=== PATIENT | female | born 1925 | race Caucasian/White ===

== ENCOUNTER 2016-11-22 12:41 | Inpatient (IN) | payer MEDICARE, OTHER ==
[~2016-11-22] VITALS: Ht 152.4 cm; Wt 44.9 kg
--- NOTE | 2016-11-22 12:50 | NUR ---
[facility] from [facility] due to hypotension and weakness. PT arrived awake, however appears confused and in mild distress. Pt denies pain or discomfort. Skin is warm to touch and non dioaphoretic. Afebrile. VSs. Gowned and placed pt on tele monitor
[2016-11-22] MEDS ORDERED: IV NS 0.9% 1,000 ML BAG IV ONE ×2 (13:00→15:00)
--- NOTE | 2016-11-22 13:00 | NUR ---
IV on left ac20 noted intact
[2016-11-22] MEDS ORDERED: IV NS 0.9% 1,000 ML ONE ×2 (13:05→15:02)
[2016-11-22 13:16] LABS: BASOPHILS # (AUTO) 0.2 /CMM (0.0-0.2); BASOPHILS % (AUTO) 0.8 % (0.0-2.0); HEMATOCRIT 37 % (33-45); HEMOGLOBIN 12.2 g/dL (11.5-14.8); LYMPHOCYTES # (AUTO) 0.6 /CMM (0.8-4.8); LYMPHOCYTES % (AUTO) 3.2 % (20.0-44.0); MEAN CORPUSCULAR HEMOGLOBIN 31 PG (26.0-33.0); MEAN CORPUSCULAR HGB CONC 33 g/dl (31.0-36.0); MEAN CORPUSCULAR VOLUME 94 fL (82-100); MONOCYTES # (AUTO) 0.6 /CMM (0.1-1.30); MONOCYTES % (AUTO) 2.9 % (2.0-12.0); NEUTROPHILS % (AUTO) 93.1 % (43.0-81.0); PLATELET COUNT (AUTO) 171 /CMM (150-450); RDW COEFFICIENT OF VARIATION 13.1 (11.5-15.0); RED BLOOD CELL COUNT(AUTO) 3.92 MIL/uL (4.0-5.2); WHITE BLOOD COUNT (AUTO) 19.4 K/uL (4.3-11.0)
[2016-11-22 13:26] LABS: CALCIUM, SERUM 8.9 mg/dL (8.5-10.1); CARBON DIOXIDE 23 mmol/L (21-32); CHLORIDE 107 mmol/L (98-107); CREATININE 1.5 mg/dL (0.6-1.3); GLUCOSE 172 mg/dL (74-106); POTASSIUM 3.5 mmol/L (3.5-5.1); SODIUM SERUM 138 mmol/L (136-145); UREA NITROGEN, BLOOD 20 mg/dL (7-18)
[2016-11-22] MEDS ORDERED: CRAN250C PO (13:26)
[2016-11-22] MEDS ORDERED: CHOL100044 PO (13:26)
[2016-11-22] MEDS ORDERED: TOPI-37 PO (13:26)
[2016-11-22] MEDS ORDERED: LEVO175T7 PO (13:26)
[2016-11-22] MEDS ORDERED: POTA20TA83 PO (13:26)
[2016-11-22] MEDS ORDERED: CITA20TA11 PO (13:26)
[2016-11-22] MEDS ORDERED: MIDO5TAB PO (13:26)
[2016-11-22] MEDS ORDERED: PRIM50TA PO (13:26)
[2016-11-22] MEDS ORDERED: TRAZ-147 PO (13:26)
[2016-11-22] MEDS ORDERED: ZINC220T PO (13:26)
[2016-11-22] MEDS ORDERED: ASCO500T9 PO (13:26)
[2016-11-22 13:31] LABS: INR 1.05 (0.87-1.13)
[2016-11-22 13:32] LABS: ALANINE AMINOTRANSFERASE 14 U/L (12-78); ALBUMIN 2.5 g/dL (3.4-5.0); ALKALINE PHOSPHATASE 63 U/L (46-116); ASPARTATE AMINOTRANSFERASE 28 U/L (15-37); BILIRUBIN,DIRECT 0.1 mg/dL (0.0-0.2); BILIRUBIN,TOTAL 0.2 mg/dL (0.2-1.0); TOTAL PROTEIN, SERUM 5.8 g/dL (6.4-8.2)
[2016-11-22 13:34] LABS: TROPONIN I 0.031 ng/mL (0.00-0.056)
[2016-11-22 14:10] LABS: APPEARANCE,URINE Cloudy (CLEAR); BILIRUBIN,URINE Negative (NEGATIVE); BLOOD, URINE Large Ery/uL (NEGATIVE); KETONES,URINE Negative (NEGATIVE); LEUKOCYTE ESTERASE ,URINE Small (NEGATIVE); NITRITE, URINE Negative (NEGATIVE); PH,URINE 7.5 (5.0-8.0); PROTEIN,URINE 100 mg/dl (NEGATIVE); UGLUCOSE Negative (NEGATIVE)
[2016-11-22 14:18] LABS: COLOR,URINE YELLOW (YELLOW)
[2016-11-22 14:23] LABS: LACTIC ACID 4.2 mmol/L (0.4-2.0)
--- NOTE | 2016-11-22 14:25 | NUR ---
PAGED DR BROOKE
[2016-11-22 14:30] LABS: ADD URINE CULTURE YES; BACTERIA,URINE Many /HPF (None Seen); RBC,URINE 81-100 /HPF (0-2); SQUAMOUS EPITHELIAL CELL,UR Moderate /HPF (None Seen)
[2016-11-22] MEDS ORDERED: CEFTRIAXONE 1GM BAG (ER ONLY) 50 ML IV ONE ×2 (15:00→15:02)
--- NOTE | 2016-11-22 15:00 | NUR ---
urine sample sent to lab
--- NOTE | 2016-11-22 15:11 | NUR ---
REPAGED DR GREENWOOD.
--- NOTE | 2016-11-22 15:29 | NUR ---
REPAGED RN TRANSPLANT ASSEMBLER MOVEMENT
--- NOTE | 2016-11-22 16:00 | NUR ---
Patient awake, dtr at bs
--- NOTE | 2016-11-22 16:30 | NUR ---
Report given to nurse CATES for tj
--- NOTE | 2016-11-22 17:09 | NUR ---
Patient tras=nsported to tele 1. vss
[2016-11-22 18:09] VITALS: BP 104/61
[2016-11-22 20:00] VITALS: BP 89/50
[2016-11-22] MEDS ORDERED: IV SET PRIMARY PUMP SET 1 EA INFUS.SET MC ONE (20:04)
[2016-11-22] MEDS: IV D5/ 0.9% NACL 1,000 ML IV PRN (20:13)
[2016-11-23] VITALS: BP 119/71
[2016-11-23 04:00] VITALS: BP 99/60
[2016-11-23 07:01] LABS: BASOPHILS # (AUTO) 0.1 /CMM (0.0-0.2); BASOPHILS % (AUTO) 0.3 % (0.0-2.0); EOSINOPHILS # (AUTO) 0.1 /CMM (0.0-0.7); EOSINOPHILS % (AUTO) 0.3 % (0.0-6.0); HEMATOCRIT 34 % (33-45); HEMOGLOBIN 11.2 g/dL (11.5-14.8); LYMPHOCYTES # (AUTO) 1.7 /CMM (0.8-4.8); LYMPHOCYTES % (AUTO) 10.1 % (20.0-44.0); MEAN CORPUSCULAR HEMOGLOBIN 31 PG (26.0-33.0); MEAN CORPUSCULAR HGB CONC 33 g/dl (31.0-36.0); MEAN CORPUSCULAR VOLUME 94 fL (82-100); MONOCYTES # (AUTO) 1.4 /CMM (0.1-1.30); NEUTROPHILS # (AUTO) 14.1 /CMM (1.8-8.9); NEUTROPHILS % (AUTO) 81.3 % (43.0-81.0); PLATELET COUNT (AUTO) 168 /CMM (150-450); RDW COEFFICIENT OF VARIATION 14.7 (11.5-15.0); RED BLOOD CELL COUNT(AUTO) 3.62 MIL/uL (4.0-5.2); WHITE BLOOD COUNT (AUTO) 17.3 K/uL (4.3-11.0)
--- NOTE | 2016-11-23 07:30 | NUR ---
BUSINESS PROCESS COORDINATOR NOTES PT IN BED, ASLEEP, EASY TO AROUSE, ALERT TO NAME, PT KNOWS WHERE SHE IS, NO COMPLAINT OF PAIN, RESPIRATIONS NORMAL AND NOT LABORED, IV FLUIDS INFUSING WELL, CALL LIGHT WITHIN REACH.
[2016-11-23 07:44] LABS: CALCIUM, SERUM 8.4 mg/dL (8.5-10.1); CREATININE 0.7 mg/dL (0.6-1.3); POTASSIUM 3.2 mmol/L (3.5-5.1)
[2016-11-23 07:55] LABS: LACTIC ACID 1.1 mmol/L (0.4-2.0)
[2016-11-23 08:00] VITALS: BP 107/59
[2016-11-23] MEDS ORDERED: Z GUARD REMEDY 2 OZ OINT TP SCH (09:00)
--- NOTE | 2016-11-23 09:19 | NUR ---
WOUND CARE CONSULT: PATIENT SEEN AND SKIN ASSESSMENT DONE. PATIENT ALERT, INCONTINENT, MICHEAL 13, LAYS ON POSITION, C/O SEVERE PAIN WHEN TURNED/REPOSITIONED, VICTOR HUGO ISOFLEX CHAR BED IN USE. SEE TODAY'S SKIN ASSESSMENT IN PCS ALONG WITH RECOMMENDATIONS. RECOMMEND MOISTURE PROTECTION WITH Z GUARD ORDERED. PRESSURE PREVENTION MEASURES, TURN AND REPOSITION EVERY 2 HRS PATIENT CONDITION PERMITS, OFFLOAD BOTH HEELS. ALL DISCUSSED WITH NURSING STAFF. MD IN AGREEMENT WITH PLAN OF CARE. Addendum: 11/23/16 at 0929 by NHAN RAMOS WNDNU Amended: Links added.
[2016-11-23] MEDS ORDERED: Z GUARD REMEDY 2 OZ OINT TP PRN (09:30)
[2016-11-23] MEDS: IV D5/ 0.9% NACL 1,000 ML IV PRN (10:06)
[2016-11-23 10:21] LABS: *RAPID PLASMA REAGIN QUAL Non Reactive (Non Reactive)
[2016-11-23] MEDS ORDERED: ACETAMINOPHEN 650 MG/20.3 ML UDC NG PRN (11:00)
[2016-11-23] MEDS ORDERED: MAGNESIUM HYDROXIDE 30 ML UDC PO PRN (11:00)
[2016-11-23] MEDS ORDERED: BISACODYL SUPP (10 MG) 10 MG/SUPP.RECT SUPP.RECT RC PRN (11:00)
--- NOTE | 2016-11-23 11:01 | NUR ---
VENDOR ANALYST NOTES PT RESTING, VERBALLY RESPONSIVE, NOT IN PAIN OR DISTRESS, SEEN BY DR. BARRAGAN, ORDERS MADE, TURNED AND REPOSITIONED Q2 HRS, KEPT COMFORTABLE.
[2016-11-23] MEDS ORDERED: POTASSIUM CHLORIDE 20 MEQ TAB.PRT.SR PO SCH (11:30)
[2016-11-23 12:00] VITALS: BP 135/76
[2016-11-23] MEDS ORDERED: ENOXAPARIN SODIUM 40 MG/0.4 ML DISP.SYRIN SQ SCH (12:00)
--- NOTE | 2016-11-23 12:01 | NUR ---
INSULATOR CUTTER AND FORMER NOTES SPOKE WITH PT'S DAUGHTER NILTON OVER THE PHONE, UPDATE ON PT'S CONDITION AND PLAN OF CARE DISCUSSED, VERBALIZED UNDERSTANDING, APPRECIATED THE CALL.
[2016-11-23] MEDS: ASCORBIC ACID 500 MG TABLET PO SCH (12:35)
[2016-11-23] MEDS: PANTOPRAZOLE 40 MG TABLET.DR PO SCH (12:35)
[2016-11-23] MEDS: CITALOPRAM HYDROBROMIDE 20 MG TABLET PO SCH (12:35)
[2016-11-23] MEDS: CHOLECALCIFEROL 1,000 UNIT TABLET (VIT D3) PO SCH (12:35)
[2016-11-23] MEDS: ENOXAPARIN SODIUM 30 MG/0.3 ML DISP.SYRIN SQ SCH (12:37)
[2016-11-23] MEDS ORDERED: ACETAMINOPHEN 325 MG TABLET PO PRN (14:00)
[2016-11-23] MEDS ORDERED: SECONDARY IV SET 1 EA INFUS.SET MC ONE (14:42)
[2016-11-23] MEDS: CEFTRIAXONE 1 G in IV D5W 50 ML IV SCH (14:46)
[2016-11-23 16:00] VITALS: BP 127/73
[2016-11-23 16:03] LABS: HEPATITIS A AB, IgM Negative (Negative); HEPATITIS B CORE AB, IgM Negative (Negative); HEPATITIS C VIRUS AB <0.1 s/co ratio (0.0-0.9)
[2016-11-23] MEDS: MIDODRINE HCL (5MG) 5 MG TABLET PO SCH (16:49)
[2016-11-23] MEDS: Z GUARD REMEDY 2 OZ OINT TP SCH (16:50)
--- NOTE | 2016-11-23 18:10 | NUR ---
TIMING MACHINE OPERATOR NOTES PT IN BED, RESTING, ALERT AND VERBALLY RESPONSIVE, NO COMPLAINT OF PAIN, BREATHING PATTERN NORMAL AND NOT LABORED, ASSISTED WITH MEALS, TOLERATING CURRENT DIET WELL, SEEN AND EVALUATED BY PT, PM MEDS GIVEN, TURNED AND REPOSITIONED Q2 HRS, KEPT SKIN CLEAN AND DRY, ALL NEEDS ATTENDED, CALL LIGHT WITHIN REACH.
[2016-11-23 20:00] VITALS: BP 132/72
--- NOTE | 2016-11-23 20:00 | NUR ---
CONSUMER LOAN MANAGER; RECEIVED PT AAO X2-3 WITH SOMEWHAT CONFUSION, FORGETFULNESS, V/S STABLE, ON ROOM AIR SATURATING > 94%, DENIED PAIN. IV FLUID ONGOING FOR HYDRATION. FULL ASSESSMENT SEE ON FLOW SHEET. ONGOING MONITORING.
[2016-11-23] MEDS: PRIMIDONE 50 MG TABLET PO SCH (21:37)
[2016-11-23] MEDS: TOPIRAMATE 100 MG TABLET PO SCH (21:37)
[2016-11-23] MEDS: TRAZODONE 50 MG TABLET PO SCH (21:37)
--- NOTE | 2016-11-23 23:31 | NUR ---
LIVESTOCK RANCHER; PT COMFORTABLY SLEEPING, NO DISTRESS. V/S STABLE. DENIED PAIN. KEEP HOURLY ROUNDING.
[2016-11-24] VITALS: BP 105/61
[2016-11-24] MEDS: IV D5/ 0.9% NACL 1,000 ML IV PRN (01:02)
[2016-11-24 04:00] VITALS: BP 125/68
[2016-11-24 07:21] LABS: BASOPHILS # (AUTO) 0.1 /CMM (0.0-0.2); BASOPHILS % (AUTO) 0.8 % (0.0-2.0); EOSINOPHILS # (AUTO) 0.1 /CMM (0.0-0.7); HEMATOCRIT 36 % (33-45); HEMOGLOBIN 12.1 g/dL (11.5-14.8); LYMPHOCYTES # (AUTO) 1.9 /CMM (0.8-4.8); LYMPHOCYTES % (AUTO) 14.6 % (20.0-44.0); MEAN CORPUSCULAR HEMOGLOBIN 31 PG (26.0-33.0); MEAN CORPUSCULAR HGB CONC 33 g/dl (31.0-36.0); MEAN CORPUSCULAR VOLUME 94 fL (82-100); MONOCYTES % (AUTO) 7.8 % (2.0-12.0); NEUTROPHILS % (AUTO) 75.8 % (43.0-81.0); PLATELET COUNT (AUTO) 181 /CMM (150-450); RDW COEFFICIENT OF VARIATION 13.9 (11.5-15.0); RED BLOOD CELL COUNT(AUTO) 3.88 MIL/uL (4.0-5.2); WHITE BLOOD COUNT (AUTO) 13.2 K/uL (4.3-11.0)
[2016-11-24 07:30] LABS: CALCIUM, SERUM 8.4 mg/dL (8.5-10.1); CREATININE 0.5 mg/dL (0.6-1.3); MAGNESIUM 1.5 mg/dL (1.8-2.4); POTASSIUM 3.3 mmol/L (3.5-5.1)
--- NOTE | 2016-11-24 07:30 | NUR ---
initial note patient in bed, breathing wnl. a+ox2, verbalizes needs, denies pain. rfa iv patent with prescribed iv fluids. tele monitor reading SR 75. skin warm and dry. patient positioned in functional alignment. discussed plan of care. she does not verbalize understanding. call light in reach.
[2016-11-24 08:00] VITALS: BP 137/85
[2016-11-24] MEDS: ASCORBIC ACID 500 MG TABLET PO SCH (08:52)
[2016-11-24] MEDS: CHOLECALCIFEROL 1,000 UNIT TABLET (VIT D3) PO SCH (08:52)
[2016-11-24] MEDS: ZINC SULFATE 220 MG CAPSULE PO SCH (08:52)
[2016-11-24] MEDS: POTASSIUM CHLORIDE 20 MEQ TAB.PRT.SR PO SCH (08:52)
[2016-11-24] MEDS: CITALOPRAM HYDROBROMIDE 20 MG TABLET PO SCH (08:52)
[2016-11-24] MEDS: LEVOTHYROXINE SODIUM 175 MCG TABLET PO SCH (08:52)
[2016-11-24] MEDS: PANTOPRAZOLE 40 MG TABLET.DR PO SCH (08:52)
[2016-11-24] MEDS: MIDODRINE HCL (5MG) 5 MG TABLET PO SCH ×2 (08:53→16:18)
[2016-11-24] MEDS: Z GUARD REMEDY 2 OZ OINT TP SCH ×2 (08:54→16:18)
[2016-11-24] MEDS ORDERED: Medication Not On Formulary EA (Cranberry Extract (Cranberry) 250 MG) PO SCH (09:00)
[2016-11-24] MEDS: ENOXAPARIN SODIUM 30 MG/0.3 ML DISP.SYRIN SQ SCH (11:09)
[2016-11-24] MEDS ORDERED: SECONDARY IV SET 1 EA INFUS.SET MC ONE ×2 (12:58→15:07)
[2016-11-24] MEDS: Potassium Chloride 40 MEQ in IV D5/ 0.9% NACL 1,000 ML IV PRN (13:03)
[2016-11-24] MEDS: Magnesium 1GM/D5W 100ML PREMIX 1 G in PREMIX 1 EA IV SCH ×2 (13:04→14:10)
[2016-11-24] MEDS: CEFTRIAXONE 1 G in IV D5W 50 ML IV SCH (15:16)
[2016-11-24 16:00] VITALS: BP 102/59
[2016-11-24] MEDS ORDERED: K PHOS NEUTRAL 250 MG TABLET PO ONE (16:00)
--- NOTE | 2016-11-24 19:00 | NUR ---
CLOSING NOTES HANDED OFF REPORT TO NIGHT NURSE. NO CHANGE OF CONDITION. patient is stable, verbalizing needs. breathing wnl. IV patent, intact, IV fluids infusing. discussed plan of care with patients daughter inez and bilingual case manager Asha at length today. no new skin break down. call light in reach
[2016-11-24 19:54] VITALS: BP 129/74
[2016-11-24 20:00] VITALS: BP 129/74
[2016-11-24] MEDS: TOPIRAMATE 100 MG TABLET PO SCH (21:34)
[2016-11-24] MEDS: PRIMIDONE 50 MG TABLET PO SCH (21:34)
[2016-11-24] MEDS: TRAZODONE 50 MG TABLET PO SCH (21:35)
[2016-11-25] MEDS: Potassium Chloride 40 MEQ in IV D5/ 0.9% NACL 1,000 ML IV PRN (03:27)
[2016-11-25 03:58] VITALS: BP 126/73
[2016-11-25 04:03] VITALS: BP 126/73
--- NOTE | 2016-11-25 07:30 | NUR ---
initial note patient in bed, breathing wnl. a+ox2, verbalizes needs, denies pain. rfa iv patent with prescribed iv fluids. skin warm and dry. patient positioned in functional alignment. discussed plan of care. she does not verbalize understanding. call light in reach.
[2016-11-25 08:00] VITALS: BP 129/84
[2016-11-25] MEDS: POTASSIUM CHLORIDE 20 MEQ TAB.PRT.SR PO SCH (08:24)
[2016-11-25] MEDS: PANTOPRAZOLE 40 MG TABLET.DR PO SCH (08:24)
[2016-11-25] MEDS: CITALOPRAM HYDROBROMIDE 20 MG TABLET PO SCH (08:24)
[2016-11-25] MEDS: LEVOTHYROXINE SODIUM 175 MCG TABLET PO SCH (08:24)
[2016-11-25] MEDS: CHOLECALCIFEROL 1,000 UNIT TABLET (VIT D3) PO SCH (08:24)
[2016-11-25] MEDS: ZINC SULFATE 220 MG CAPSULE PO SCH (08:24)
[2016-11-25] MEDS: ASCORBIC ACID 500 MG TABLET PO SCH (08:24)
[2016-11-25 08:25] VITALS: BP 129/84
[2016-11-25] MEDS: MIDODRINE HCL (5MG) 5 MG TABLET PO SCH (08:25)
[2016-11-25] MEDS: Z GUARD REMEDY 2 OZ OINT TP SCH (08:25)
[2016-11-25] MEDS: ENOXAPARIN SODIUM 30 MG/0.3 ML DISP.SYRIN SQ SCH (11:25)
[2016-11-25] MEDS: CEFTRIAXONE 1 G in IV D5W 50 ML IV SCH (13:25)
--- NOTE | 2016-11-25 14:00 | NUR ---
discharge note patient left in stable condition accompanied by board and care personnel. iv removed, no bleeding, no infiltration. ID band removed. belongings all with patient- only with clothing, confirmed by [employer] accounts payable administrator. orders faxed to [facility] and confirmed receiving per patients personal correctional casework specialist Aneit request. communicated to patient's daughter Amber about discharge, daughter verbalized understanding. provided all discharge summary paper work including medication to continue and discontinue. no new skin break down in hospital, discharge skin photos in chart. patient unable to sign, charge nurse signed. patient escorted via wheel chair safely to private car.
== END 2016-11-25 14:50 | disposition home or self-care (01) | DRG 871 ==
LOC: ER 12:44 → TELE1 14:39 → MEDSG1 11-24 09:43
PROVIDERS: ADMIT Internal Medicine; ATTEND Internal Medicine Nephrology
DX: A41.9 Sepsis, unspecified organism (principal); N17.0 Acute kidney failure with tubular necrosis; G93.40 Encephalopathy, unspecified; N39.0 Urinary tract infection, site not specified; E87.2 Acidosis; D64.9 Anemia, unspecified; E03.9 Hypothyroidism, unspecified; E87.6 Hypokalemia; F32.9 Major depressive disorder, single episode, unspecified; G30.9 Alzheimer's disease, unspecified; F02.80 Dementia in other diseases classified elsewhere, unspecified severity, without behavioral disturbance, psychotic disturbance, mood disturbance, and anxiety; I95.89 Other hypotension; Z66 Do not resuscitate; R65.20 Severe sepsis without septic shock
CPT/HCPCS: 36415; 71010-TC; 80048-TC; 80074; 80076-TC; 81000-TC; 83605-TC; 83735-TC; 84100-TC; 84443-TC; 84484-TC; 85025-TC; 85730-TC; 86592; 87040-TC; 87086-TC; 87186-TC; 97001-TC; A4216; A4606; J0696; J1650; J3475; J3480; J7030; J7042; J7060; Z7610